=== PATIENT | female | born 1955 | race Caucasian/White ===

== ENCOUNTER 2020-12-23 20:29 | Inpatient (IN) | payer OTHER ==
[~2020-12-23] VITALS: Ht 170.2 cm; Wt 72.6 kg
--- NOTE | ~2020-12-23 | EMS ---
[facility] [address] [place] [address] EMS Patient Care Report Name: Fatemeh MICHELLESTEWART ROCKWELLJANES Room #: 217-P [facility] IN M.R.#: [id number] Admission: 12/23/20 Attend Phys: Prasad Holly MD Discharge: 12/25/20 Date of : 59 Report #: [id number] THIS REPORT FOR: //name// Report Transmitted: 01/01/2021 13:18 EMS Care Summary [facility] Incident [id number] @ 12/23/2020 18:59 Incident Location [address] [place] [id number] Patient Hiral Sue Female, 65 Years 1955 Patient Address [address] [place] [address] Patient History Hypertension (HTN),Anxiety, Patient Allergies , Patient Medications Amitriptyline, Atenolol, Carisoprodol, Citalopram, Diazepam, Simvastatin, Disposition Transported No Lights/[place] Dispatch Reason No Other Appropriate Choice Transported To [facility] Narrative Arrived to find pt lying semi-Pulliam in ED RM 2, at bedside. Report obtained from YESI Murillo, who states the pt presented to the ED after having chest pain for the past 36 hours. Pt has no prior cardiac history. Pt does have history of hypertension, migraines, anxiety, and she took her home medications of Soma and Ativan prior to presenting to the ED. In the ED, pt was found to have EKG changes to inferior leads, and was treated with heparin bolus 4000, ASA 324, Brilinta 180, nitroglycerin SL, and fentanyl 25 prior to our arrival. Pt reported to be Covid negative, and troponin 0.742, remaining labs not yet [facility] [address] [place] [address] EMS Patient Care Report Name: JANES Gray Room #: 217-P [facility] IN M.R.#: [id number] Admission: 12/23/20 Attend Phys: Prasad Holly MD Discharge: 12/25/20 Date of : 59 Report #: [id number] available and per RN will be sent electronically to the receiving facility. Pt was assessed and prepared for transport, moved to cot with assistance of nursing staff, secured to cot, and cot moved to aircraft, hot load. Cot secured in full forward locked position and pt transported to [facility]. 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 Initial Vitals @PTAP: 98,R: 22,BP: 143/101,GCS: 15,Glucose: 115,SpO2: 94,Revised Trauma: 12, @19:35P: 93,R: 16,BP: 130/81,Pain: 4/10,GCS: 15,Temp: 68.13567331040065Q,SpO2: 97,Revised Trauma: 12, @19:44P: 100,R: 17,BP: 139/87,GCS: 15,Temp: 63.14F,SpO2: 97,Revised Trauma: 12, @19:54P: 95,R: 21,BP: 125/81,Pain: 4/10,GCS: 15,Temp: 69.78456849478911J,SpO2: 95,Revised Trauma: 12, @20:03P: 97,R: 24,BP: 128/90,GCS: 15,Temp: 70.34F,SpO2: 96,Revised Trauma: 12, @20:13P: 98,R: 14,BP: 130/86,Pain: 0/10,GCS: 15,Temp: 70.52F,SpO2: 96,Revised Trauma: 12, @20:23P: 96,R: 21,BP: 117/83,Pain: 0/10,GCS: 15,Temp: 71.06F,SpO2: 97,Revised Trauma: 12, Assessments @19:31MENTAL:SKIN:HEENT:LUNG SOUNDS:ABDOMEN:PELVIS//GI:EXTREMITIES:PULSE:NEURO:@20:15MENTAL:SKIN:HEENT:LUNG SOUNDS:ABDOMEN:PELVIS//GI:EXTREMITIES:PULSE:NEURO: Impression ST elevation (STEMI) myocardial infarction of other sites Procedures @19:40 Ondansetron - 4 Milligrams (mg) - Intravenous (IV) Response: Unchanged @PTAIV Therapy - cc () Site: Hand-RightSucceeded @PTAIV Therapy - cc () Site: Hand-LeftSucceeded @PTAElevation of head of bed (procedure)Succeeded Timeline WELFARE SERVICE AIDE,IV Therapy - cc Site: Hand-Right,Succeeded, WELFARE SERVICE AIDE,IV Therapy - cc Site: Hand-Left,Succeeded, WELFARE SERVICE AIDE,Elevation of head of bed (procedure),Succeeded, WELFARE SERVICE AIDE,BP: 143/101 M,PULSE: 98,RR: 22 R,SPO2: 94 Ox,ETCO2: ,B,PAIN: ,GCS: 15, 07:00,Call Received 18:58,Psap Call 18:59,Dispatched 19:13,En Route 19:28,On Scene [facility] [address] [place] [address] EMS Patient Care Report Name: JANES Gray Room #: 217-P DIS IN M.Lewis.#: [id number] Admission: 12/23/20 Attend Phys: Prasad Holly MD Discharge: 12/25/20 Date of : 59 Report #: [id number] 19:31,At Patient 19:35,BP: 130/81 M,PULSE: 93,RR: 16 R,SPO2: 97 Ox,ETCO2: ,BG: ,PAIN: 4,GCS: 15, 19:40,Ondansetron - 4 Milligrams (mg) - Intravenous (IV),Response: Unchanged 19:41,Transfer Of Care 19:44,BP: 139/87 M,PULSE: 100,RR: 17 R,SPO2: 97 Ox,ETCO2: ,BG: ,PAIN: ,GCS: 15, 19:47,Depart Scene 19:54,BP: 125/81 M,PULSE: 95,RR: 21 R,SPO2: 95 Ox,ETCO2: ,BG: ,PAIN: 4,GCS: 15, 20:03,BP: 128/90 M,PULSE: 97,RR: 24 R,SPO2: 96 Ox,ETCO2: ,BG: ,PAIN: ,GCS: 15, 20:11,At Destination 20:13,BP: 130/86 M,PULSE: 98,RR: 14 R,SPO2: 96 Ox,ETCO2: ,BG: ,PAIN: 0,GCS: 15, 20:23,BP: 117/83 M,PULSE: 96,RR: 21 R,SPO2: 97 Ox,ETCO2: ,BG: ,PAIN: 0,GCS: 15, 20:48,Call Closed 21:26,In District Disclaimer v1.1 Copyright 2020 [employer] This EMS Care Summary contains data elements from the applicable legal record (which may be displayed differently). It is designed to provide pertinent information for the following purposes: continuity of care, clinical quality, and state data reporting. The complete legal record is available to ED staff and administrators of the receiving hospital in [employer]'s Patient Tracker. All data is provided "as is."
[2020-12-23 22:30] VITALS: BP 138/95; BP 139/99
[2020-12-23 22:45] VITALS: BP 142/101
[2020-12-23] MEDS ORDERED: DIAZEPAM 10 MG10 M1 PO (23:45)
[2020-12-23] MEDS ORDERED: CARISOPRODOL350 MG PO (23:46)
[2020-12-23] MEDS ORDERED: ATENOLOL 25MG T25 MG PO (23:47)
[2020-12-23] MEDS ORDERED: CELEXA 20 MG TA20 MG PO (23:48)
[2020-12-23] MEDS ORDERED: AMITRIPTYLINE H25 M4 PO (23:49)
[2020-12-23] MEDS ORDERED: ZOCOR 20 MG TAB20 M1 PO (23:50)
[2020-12-24] VITALS (10 sets, daily range): BP systolic 112–143; BP diastolic 83–99
--- NOTE | 2020-12-24 02:38 | NUR ---
PT ADMITTED FROM HEAD OF ACQUISITIONS TO ROOM 217 AT AROUND 2230, ALERT AND ORIENTECX4, SR ON TELE, R.GROIN SITE CDI, NO HEMATOMA, REMAINED ON BEDREST FOR 3HRS, UP TO THE BATHROOM STBY ASSIST, PT ABLE TO VOID POST PROCEDURE, GROIN SITE CDI WITH NO HEMATOMA AFTER, DENIES CP, NITRO GTT INFUSING PER ORDERS . VALIUM GIVEN FOR MIGRAINES, ADMISSION ASSESSMENTS, HX, & EDUCATION COMPLETED, NO DISTRESS AT THIS TIME, WILL CONTINUE TO MONITOR PER POC
[2020-12-24 04:55] LABS: ALBUMIN 3.2 g/dL (3.4-5.0); ANION GAP 8 mmol/L (7-16); BUN 8 mg/dL (7-18); CALCIUM 9.9 mg/dL (8.5-10.1); CHLORIDE 109 mmol/L (98-107); CHOLESTEROL 178 mg/dL (<200); CO2 25 mmol/L (21-32); CREATININE 0.7 mg/dL (0.6-1.0); GLUCOSE 120 mg/dL (74-106); HDL CHOLESTEROL 58 mg/dL (>40); LDL CHOLESTEROL 93 mg/dL (<100); POTASSIUM 3.8 mmol/L (3.5-5.1); SGOT 26 U/L (15-37); SGPT 18 U/L (30-65); SODIUM 142 mmol/L (136-145); TC:HDL 3.1 Ratio (Not establshd); TOTAL BILIRUBIN 0.3 mg/dL (0.2-1.0); TOTAL PROTEIN 6.3 g/dL (6.4-8.2); TRIGLYCERIDE 136 mg/dL (<150); VLDL 27 mg/dL (<40)
[2020-12-24 05:25] LABS: SERUM ASSESSMENT Clear
--- NOTE | 2020-12-24 08:46 | NUR ---
DISCUSSED CURRENT NITRO ORDERS AND PATIENT COMPLAINT FOR SEVERE MIGRAINE WITH CARDIOLOGY BRASS CHASER. ORDERS TO DISCONTINUED GTT. NITRO GTT DISCONTINUED AT 0845.
--- NOTE | 2020-12-24 12:03 | 2DMMODE ---
[facility] [place] [address] 2 D/M-MODE ECHOCARDIOGRAM Name: JANES JANSEN Room #: 217-P ADM IN M.R.#: [id number] Admission: 12/23/20 Attend Phys: Lincoln Rodríguez MD Discharge: Date of : 59 Report #: [id number] THIS REPORT FOR: cc: FAM - Family physician unknown FAM - Family physician unknown Manpreet Lopez MD ~ APPROVED REPORT Study performed: 12/24/2020 11:08:24 EXAM: Comprehensive 2D, Doppler, and color-flow Echocardiogram Patient Location: Bedside Room #: 217 Status: routine BSA: 1.84 HR: 85 bpm BP: 125/87 mmHg Rhythm: NSR Other Information Study Quality: Good Indications Inferior MT stats post 2 stents. 2D Dimensions IVSd: 8.99 (7-11mm) LVOT Diam: 20.36 (18-24mm) LVDd: 38.46 mm PWd: 9.43 (7-11mm) LVDs: 30.53 (25-40mm) Left Atrium: 30.25 (27-40mm) Aortic Root: 31.94 mm Volumes Left Atrial Volume (Systole) Single Plane 4CH: 14.58 mL Single Plane 2CH: 16.62 mL LA ESV Index: 9.00 mL/m2 Aortic Valve AoV Peak Uri.: 1.47 m/s AO Peak Gr.: 8.70 mmHg LVOT Max P.47 mmHg LVOT Max V: 1.06 m/s LUZ Vmax: 2.33 cm2 [facility] [address] [place] [address] 2 D/M-MODE ECHOCARDIOGRAM Name: JANES JANSEN Room #: 217-P [facility] IN .R.#: [id number] Admission: 12/23/20 Attend Phys: Lincoln Rodríguez MD Discharge: Date of : 59 Report #: [id number] Mitral Valve E/A Ratio: 0.6 MV Decel. Time: 307.49 ms MV E Max Uri.: 0.58 m/s MV A Uri.: 0.91 m/s MV PHT: 89.17 ms IVRT: 114.19 ms Pulmonary Valve PV Peak Uri.: 1.07 m/s PV Peak Gr.: 4.56 mmHg Tricuspid Valve TR Peak Uri.: 2.11 m/s RAP Estimate: 5.00 mmHg TR Peak Gr.: 18.00 mmHg PA Pressure: 23.00 mmHg Left Ventricle The left ventricle is normal size. Regional wall motion abnormalities are noted. There is normal left ventricular wall thickness. Left ventricular systolic function is low normal. LVEF is 45-50%. Mild diastolic dysfunction is present (impaired relaxation pattern). Right Ventricle The right ventricle is normal size. The right ventricular systolic function is normal. Atria The left atrium size is normal. The right atrium size is normal. Aortic Valve The aortic valve is normal in structure. No aortic regurgitation is present. There is no aortic valvular stenosis. Mitral Valve The mitral valve is normal in structure. There is no mitral valve regurgitation noted. No evidence of mitral valve stenosis. Tricuspid Valve The tricuspid valve is normal in structure. Trace tricuspid regurgitation. Estimated PAP is 23mmHg. Pulmonic Valve The pulmonary valve is normal in structure. Trace pulmonic regurgitation. [facility] [place] [address] 2 D/M-MODE ECHOCARDIOGRAM Name: JANES JANSEN Room #: 217-P ADM IN M.R.#: [id number] Admission: 12/23/20 Attend Phys: Lincoln Rodríguez MD Discharge: Date of : 59 Report #: [id number] Great Vessels The aortic root is normal in size. Ascending aorta is not well visualized. IVC is normal in size and collapses >50% with inspiration. Pericardium There is no pericardial effusion. <Conclusion> The left ventricle is normal size. Left ventricular systolic function is low normal. LVEF is 45-50%. The right ventricle is normal size. The left atrium size is normal. The aortic valve is normal in structure. The mitral valve is normal in structure. The tricuspid valve is normal in structure. Trace tricuspid regurgitation. Estimated PAP is 23mmHg. The pulmonary valve is normal in structure. Trace pulmonic regurgitation. The aortic root is normal in size. There is no pericardial effusion. <ELECTRONICALLY SIGNED> By: Manpreet Lopez MD 12/24/201201 01 01 Manpreet Lopez MD /INF
--- NOTE | 2020-12-25 04:05 | NUR ---
UPON SHIFT REPORT, PT SLEEPING. PT RESTING WITHOUT INTERRUPTION OR OBSERVATION OF PAIN, DISCOMFORT OR SOB WHILE ON ROOM AIR. PT RESTING IN BED FOR REMAINDER OF SHIFT, FREQUENT REPOSITIONING ENCOURAGED, PT NOTED TO SHIFT INDEPENDENTLY. PT ENCOURAGED TO NOTIFY STAFF FOR ALL NEEDS, CALL LIGHT WITHIN REACH, BED LOCKED IN LOWEST POSITION, FREQUENT MONITORING WILL CONTINUE.
[2020-12-25 05:19] VITALS: BP 124/73
[2020-12-25 07:36] VITALS: BP 124/76
[2020-12-25] MEDS ORDERED: CRESTOR40 MG PO (08:46)
[2020-12-25] MEDS ORDERED: ASPIRIN325 PO (08:46)
[2020-12-25] MEDS ORDERED: EFFIENT10 MG PO (08:46)
[2020-12-25] MEDS ORDERED: COREG6.25 MG PO (08:46)
[2020-12-25] MEDS ORDERED: LISINOPRIL2.5 MG PO (08:46)
[2020-12-25 10:54] VITALS: BP 124/76
--- NOTE | 2020-12-25 12:20 | NUR ---
PATIENT DISCHARGED AT THIS TIME WITH FAMILY PRESENT VIA PERSONAL CAR. DISCHARGE EDUCATION PROVIDED AND MEDICATION EDUCATION GIVEN. PATIENT DENIES ANY QUESTIONS OR CONCERNS. AGREEABLE TO DISCHARGE PLAN.
== END 2020-12-25 12:29 | disposition home or self-care (01) | DRG 246 ==
LOC: 2N 20:29
PROVIDERS: Internal Medicine; ADMIT Hospitalist; ATTEND Hospitalist
PROC: B2111ZZ Fluoroscopy of Multiple Coronary Arteries using Low Osmolar Contrast (ICD-10-PCS; principal; 2020-12-23)
PROC: 4A023N7 Measurement of Cardiac Sampling and Pressure, Left Heart, Percutaneous Approach (ICD-10-PCS; principal; 2020-12-23)
PROC: 027135Z Dilation of Coronary Artery, Two Arteries with Two Drug-eluting Intraluminal Devices, Percutaneous Approach (ICD-10-PCS; principal; 2020-12-23)
DX: I21.19 ST elevation (STEMI) myocardial infarction involving other coronary artery of inferior wall (principal); I50.33 Acute on chronic diastolic (congestive) heart failure; I25.10 Atherosclerotic heart disease of native coronary artery without angina pectoris; I25.5 Ischemic cardiomyopathy; I10 Essential (primary) hypertension; E78.5 Hyperlipidemia, unspecified; G43.909 Migraine, unspecified, not intractable, without status migrainosus; F41.9 Anxiety disorder, unspecified; Z87.891 Personal history of nicotine dependence; Z90.49 Acquired absence of other specified parts of digestive tract; Z90.710 Acquired absence of both cervix and uterus; Z79.899 Other long term (current) drug therapy; Z88.8 Allergy status to other drugs, medicaments and biological substances; Z91.040 Latex allergy status; Z82.49 Family history of ischemic heart disease and other diseases of the circulatory system; Z80.3 Family history of malignant neoplasm of breast
CPT/HCPCS: 10081